=== PATIENT | male | born 1945 | race Caucasian/White ===

== ENCOUNTER 2016-08-25 22:14 | Emergency (ER) | payer MEDICARE ==
[~2016-08-25] VITALS: Ht 170.2 cm; Wt 80.0 kg
[~2016-08-25 22:14] MED LIST: AZAT50 PO; OMEP20CA5 PO; PROM25SU8 PO
[2016-08-25 22:18] VITALS: BP 116/56; PULSE 59; RESP 20; TEMP 96.7; O2SAT 98
[2016-08-25] MEDS ORDERED: SODIUM CHLOR 0.9% 1000 ML INJ 1,000 ML IV SCH (22:36)
--- NOTE | 2016-08-25 22:43 | PD ---
HPI Chief Complaint: Abdominal Pain Time Seen by Provider: 22:39 Travel History International Travel<30 days: No Contact w/Intl Traveler<30days: No Traveled to known affect area: No History of Present Illness HPI 71-year-old male with a history of Crohn's disease that presents to the ED for evaluation of severe sharp pain on the epigastric area. Per patient this is in ongoing for about 3 hours. He denies any other symptoms with it other than some chest pressure. He states having had surgeries for removal of the rectum secondary to Crohn's disease in 2000. He has had no recent surgeries since. He states that he doesn't feel nausea but the pain is 10 out of 10. He states that he had something similar a year ago and he was diagnosed with GERD and was given medications with good results of his symptoms. Patient had a full workup during that time that showed no sign of acute disease. Per patient again and he states the pain feels similar. He denies any headache. States that the pain on the chest is more on the epigastric area. He denies any history of heart disease on himself or his family. He does have a history of hypertension. He takes chronically medications for his Crohn's. He states that he has a colostomy back and he has been producing stool with no problems as far as he knows. He denies any urinary issues. She denies eating anything new that could've caused this. No recent travel. No fevers chills or sweats. No trauma. Pain does not radiate. Denies any shortness of breath. PFSH Past Medical History Diminished Hearing: No Gastrointestinal Disorders: Yes (CROHNS) GERD: Yes Tetanus Vaccination: Unknown Influenza Vaccination: Yes ?: Not Past Surgical History Abdominal Surgery: Yes (sigmoid resection, rectum removal) Social History Alcohol Use: Yes (2 x week) Tobacco Use: No Substance Use: No Allergies-Medications (Allergen,Severity, Reaction): Coded Allergies: Penicillin (Verified Allergy, Severe, 08/25/16) Reported Meds & Prescriptions Reported Meds & Active Scripts Active Reported [id number] M1 50 Mg Tab 150 Mg PO DAILY Review of Systems Except as stated in HPI: all other systems reviewed are Neg Physical Exam Narrative GENERAL: SKIN: Warm and dry. HEAD: Atraumatic. Normocephalic. EYES: Pupils equal and round. No scleral icterus. No injection or drainage. ENT: No nasal bleeding or discharge. Mucous membranes pink and moist. NECK: Trachea midline. No JVD. CARDIOVASCULAR: Regular rate and rhythm. RESPIRATORY: No accessory muscle use. Clear to auscultation. Breath sounds equal bilaterally. GASTROINTESTINAL: Abdomen soft, patient is very tender in the epigastric area especially with deep palpation., nondistended. Hepatic and splenic margins not palpable. MUSCULOSKELETAL: Extremities without clubbing, cyanosis, or edema. No obvious deformities. Full range of motion of the upper and lower extremities bilaterally. 2+ pulses bilaterally. NEUROLOGICAL: Awake and alert. No obvious cranial nerve deficits. Motor grossly within normal limits. Five out of 5 muscle strength in the arms and legs. Normal speech. PSYCHIATRIC: Appropriate mood and affect; insight and judgment normal. Data Data Last Documented VS Vital Signs Date Time Temp Pulse Resp B/P Pulse Ox O2 Delivery O2 Flow Rate FiO2 08/25/16 22:18 96.7 59 20 116/56 98 Room Air Orders Complete Blood Count With Diff (08/25/16 22:36) Lipase (08/25/16 22:36) Lactic Acid (08/25/16 22:36) Prothrombin Time / Inr (Pt) (08/25/16 22:36) Act Partial Throm Time (Ptt) (08/25/16 22:36) Urinalysis - C+S If Indicated (08/25/16 22:36) Ct Abd/Pel W Iv Contrast(Rout) (08/25/16 22:36) Iv Access Insert/Monitor (08/25/16 22:36) Ecg Monitoring (08/25/16 22:36) Oximetry (08/25/16 22:36) NPO (08/25/16 22:36) Ondansetron Inj (Zofran Inj) (08/25/16 22:45) Pantoprazole Inj (Protonix Inj) (08/25/16 22:45) Sodium Chlor 0.9% 1000 Ml Inj (Ns 1000 M (08/25/16 22:36) Famotidine Inj (Pepcid Inj) (08/25/16 22:45) Hydromorphone Pf Inj (Dilaudid Pf Inj) (08/25/16 22:45) Troponin I (08/25/16 22:36) Ckmb (Isoenzyme) Profile (08/25/16 22:36) [facility] Medical Decision Making Medical Screen Exam Complete: Yes Emergency Medical Condition: Yes Medical Record Reviewed: Yes Differential Diagnosis Crohn's flare versus epigastric pain versus pancreatitis versus perforated bowel versus obstruction versus GERD versus gastritis versus gastric ulcer versus chest pain versus ACS versus a typical chest pain Narrative Course 71-year-old male that presents to the ED for evaluation of epigastric pain. Patient was properly examined and was found to have signs and symptoms consistent with appears to be like abdominal pain but cannot rule out cardiac disease secondary to his age and symptoms. Motor, patient is times for labs and imaging. She was given IV pain medications. Patient agrees for us to proceed. Patient will be signed out to my attending pending lab and imaging results. Ted Singh Aug 25, 2016 22:43
[2016-08-25] MEDS ORDERED: ONDANSETRON HCL 4 MG/2 ML VIAL IVP ONE (22:45)
[2016-08-25] MEDS ORDERED: FAMOTIDINE 20 MG/2 ML VIAL IV PUSH ONE (22:45)
[2016-08-25] MEDS ORDERED: PANTOPRAZOLE SODIUM 40 MG VIAL IVP ONE (22:45)
[2016-08-25] MEDS ORDERED: HYDROmorphone HCL PF 1 MG/ML VIAL IVS ONE (22:45)
[2016-08-25] MEDS ORDERED: AZAT50 PO (23:09)
[2016-08-25 23:10] VITALS: O2SAT 98
[2016-08-25 23:12] VITALS: BP 155/74; PULSE 80; RESP 18; O2SAT 98
[2016-08-25 23:17] LABS: BASOPHIL % 0.3 % (0.0-2.0); EOSINOPHIL # 0.1 TH/MM3 (0-0.4); EOSINOPHIL % 0.6 % (0.0-4.0); HEMATOCRIT 40.7 % (39.0-51.0); HEMO FLAGS DIFF FINAL; LYMPH % 7.2 % (9.0-44.0); LYMPHOCYTE # 0.8 TH/MM3 (1.0-4.8); MEAN CELL VOLUME 91.2 FL (80.0-100.0); MEAN CORPUSCULAR HEMOGLOBIN 31.9 PG (27.0-34.0); MONO % 6.4 % (0.0-8.0); NEUT % 85.5 % (16.0-70.0); PLATELET COUNT 243 TH/MM3 (150-450); RED BLOOD COUNT 4.46 MIL/MM3 (4.50-5.90); RED CELL DISTRIBUTION WIDTH 14.9 % (11.6-17.2); WHITE BLOOD COUNT 10.5 TH/MM3 (4.0-11.0)
--- NOTE | 2016-08-25 23:26 | RADRPT ---
EXAM DATE/TIME: 08/25/2016 22:56 [facility] COMPARISON: CHEST SINGLE AP, June 03, 2015, 22:09. INDICATIONS : Chest pain. MEDICAL HISTORY : None. SURGICAL HISTORY : None. ENCOUNTER: Initial ACUITY: 1 day PAIN SCORE: 10/10 LOCATION: middle chest. FINDINGS: The cardiac silhouette is enlarged in transverse diameter. The lungs are free of acute parenchymal op acity. No effusions are identified. CONCLUSION: 1. Cardiomegaly. No acute pulmonary disease. Antolin Borges MD on August 25, 2016 at 23:25 Board Certified Radiologist. This report was verified electronically.
[2016-08-25 23:33] LABS: CREATINE KINASE 113 U/L (39-308)
[2016-08-25 23:46] LABS: CKMB 1.6 NG/ML (0.5-3.6)
[2016-08-26 00:10] LABS: ALT (GPT) 23 U/L (12-78); ANION GAP 10 MEQ/L (5-15); AST (GOT) 18 U/L (15-37); BICARBONATE 26.7 MEQ/L (21.0-32.0); BLOOD UREA NITROGEN 20 MG/DL (7-18); CHLORIDE 102 MEQ/L (98-107); GLOMERULAR FILTRATION RATE 55 ML/MIN (>89); POTASSIUM 3.5 MEQ/L (3.5-5.1); SODIUM (NA) 139 MEQ/L (136-145)
[2016-08-26 00:12] LABS: ALKALINE PHOSPHATASE 74 U/L (45-117); TOTAL BILIRUBIN ADULT 0.5 MG/DL (0.2-1.0)
[2016-08-26 00:28] VITALS: BP 134/62; PULSE 77; RESP 16; O2SAT 98
[2016-08-26] MEDS ORDERED: IOHEXOL 350 MG/ML 10 ML VIAL (for RAD DIAG) IV ONE (00:45)
[2016-08-26 00:53] LABS: BLOOD, URINE NEG (NEG); COMMENT (UR) CULT NOT INDICATED; CULTURE IF INDICATED CULT NOT INDICATED; GLUCOSE,URINE NEG (NEG); KETONE, URINE 40 mg/dL (NEG); MUCUS URINE FEW /lpf (OCC); NITRITE,URINE NEG (NEG); PH, URINE 6.5 (5.0-8.5); URINE COLOR YELLOW (YELLW/STRAW)
--- NOTE | 2016-08-26 01:00 | RADRPT ---
EXAM DATE/TIME: 08/26/2016 00:36 [facility] COMPARISON: No previous studies available for comparison. INDICATIONS : Upper abdominal pain. IV CONTRAST: 100 cc Omnipaque 350 (iohexol) IV ORAL CONTRAST: No oral contrast ingested. RADIATION DOSE: 9.84 CTDIvol (mGy) MEDICAL HISTORY : Crohn's disease. Gastroesophageal reflux disease. SURGICAL HISTORY : Sigmoid resection ENCOUNTER: Initial ACUITY: 1 day PAIN SCALE: 8/10 LOCATION: upper quadrant abdomen TECHNIQUE: Volumetric scanning of the abdomen and pelvis was performed. Using automated exposure control and ad justment of the mA and/or kV according to patient size, radiation dose was kept as low as reasonably achievable to obtain optimal diagnostic quality images. FINDINGS: There is linear atelectasis versus scar bilaterally. The liver and spleen are normal in size and no f ocal defects are identified. There are multiple stones within the gallbladder without wall thickening or pericholecystic fluid the largest measuring 10 mm containing air. The pancreas demonstrates no ev idence of mass and there is no dilatation of the pancreatic duct. The adrenal glands and kidneys appe ar normal bilaterally. No hydronephrosis or mass lesions are identified. Examination of the pelvis demonstrates no evidence of free fluid or pelvic mass. No abnormally enlarg ed inguinal or retroperitoneal lymph nodes are present. The bladder is unremarkable. The prostate gla nd is moderately enlarged impinging on the bladder base. An ostomy is present in the left lower quadr ant. CONCLUSION: 1. No evidence of acute abdominal or pelvic process. No masses are identified. 2. Cholelithiasis Antolin Borges MD on August 26, 2016 at 0:55 Board Certified Radiologist. This report was verified electronically.
--- NOTE | 2016-08-26 01:22 | PD ---
Data Data Last Documented VS Vital Signs Date Time Temp Pulse Resp B/P Pulse Ox O2 Delivery O2 Flow Rate FiO2 08/26/16 00:28 77 16 134/62 98 Room Air 08/25/16 22:18 96.7 Orders Complete Blood Count With Diff (08/25/16 22:36) Lipase (08/25/16 22:36) Lactic Acid (08/25/16 22:36) Prothrombin Time / Inr (Pt) (08/25/16 22:36) Act Partial Throm Time (Ptt) (08/25/16 22:36) Urinalysis - C+S If Indicated (08/25/16 22:36) Iv Access Insert/Monitor (08/25/16 22:36) Ecg Monitoring (08/25/16 22:36) Oximetry (08/25/16 22:36) NPO (08/25/16 22:36) Ondansetron Inj (Zofran Inj) (08/25/16 22:45) Pantoprazole Inj (Protonix Inj) (08/25/16 22:45) Sodium Chlor 0.9% 1000 Ml Inj (Ns 1000 M (08/25/16 22:36) Famotidine Inj (Pepcid Inj) (08/25/16 22:45) Hydromorphone Pf Inj (Dilaudid Pf Inj) (08/25/16 22:45) Troponin I (08/25/16 22:36) Ckmb (Isoenzyme) Profile (08/25/16 22:36) Chest, Single Ap (08/25/16 ) CKMB (08/25/16 23:00) CKMB% (08/25/16 23:00) Comprehensive Metabolic Panel (08/25/16 23:41) Ct Abd/Pel W Iv Contrast(Rout) (08/26/16 22:36) Iohexol 350 Inj (Omnipaque 350 Inj) (08/26/16 00:45) Labs Laboratory Tests Test 08/25/16 08/26/16 23:00 00:20 White Blood Count 10.5 TH/MM3 Red Blood Count 4.46 MIL/MM3 Hemoglobin 14.2 GM/DL Hematocrit 40.7 % Mean Corpuscular Volume 91.2 FL Mean Corpuscular Hemoglobin 31.9 PG Mean Corpuscular Hemoglobin 35.0 % Concent Red Cell Distribution Width 14.9 % Platelet Count 243 TH/MM3 Mean Platelet Volume 8.9 FL Neutrophils (%) (Auto) 85.5 % Lymphocytes (%) (Auto) 7.2 % Monocytes (%) (Auto) 6.4 % Eosinophils (%) (Auto) 0.6 % Basophils (%) (Auto) 0.3 % Neutrophils # (Auto) 9.0 TH/MM3 Lymphocytes # (Auto) 0.8 TH/MM3 Monocytes # (Auto) 0.7 TH/MM3 Eosinophils # (Auto) 0.1 TH/MM3 Basophils # (Auto) 0.0 TH/MM3 CBC Comment DIFF FINAL Differential Comment Prothrombin Time 11.0 SEC Prothromb Time International 1.0 RATIO Ratio Activated Partial 25.0 SEC Thromboplast Time Lactic Acid Level 2.9 mmol/L Total Creatine Kinase 113 U/L Creatine Kinase MB 1.6 NG/ML Troponin I LESS THAN 0.02 NG/ML Lipase 148 U/L Sodium Level 139 MEQ/L Potassium Level 3.5 MEQ/L Chloride Level 102 MEQ/L Carbon Dioxide Level 26.7 MEQ/L Anion Gap 10 MEQ/L Blood Urea Nitrogen 20 MG/DL Creatinine 1.29 MG/DL Estimat Glomerular Filtration 55 ML/MIN Rate Random Glucose 169 MG/DL Calcium Level 9.2 MG/DL Total Bilirubin 0.5 MG/DL Aspartate Amino Transf 18 U/L (AST/SGOT) Alanine Aminotransferase 23 U/L (ALT/SGPT) Alkaline Phosphatase 74 U/L Total Protein 7.2 GM/DL Albumin 3.8 GM/DL Urine Color YELLOW Urine Turbidity CLEAR Urine pH 6.5 Urine Specific [place] 1.015 Urine Protein NEG mg/dL Urine Glucose (UA) NEG mg/dL Urine Ketones 40 mg/dL Urine Occult Blood NEG Urine Nitrite NEG Urine Bilirubin NEG Urine Urobilinogen LESS THAN 2.0 MG/DL Urine Leukocyte Esterase NEG Urine RBC 1 /hpf Urine WBC 2 /hpf Urine Mucus FEW /lpf Microscopic Urinalysis Comment CULT NOT INDICATED MDM Supervised Visit with DUGLAS: Yes Narrative Course Patient seen and examined by me in addition to lucero Encarnacion, have reviewed the advance practice practitioner's documentation and am in agreement, met with the patient face to face, made the diagnosis, and the medical decision making was done by me. *My assessment and Findings: This 71-year-old male with a history of Crohn's disease and diverting colostomy presents today with lower quadrant abdominal pain now radiating up into his epigastric region. Patient's initial workup is negative, EKG shows normal sinus rhythm normal axis normal R-wave progression. No concerning ST changes is a normal EKG. Troponin negative, labs reassuring. CAT scan shows no intra- abdominal acute abnormality. Patient is completely relieved of his pain on my initial evaluation and would like to go home. Discussed the need follow the primary care physician symptomatically management including brat diet and return to ED criteria. Diagnosis Primary Impression: Abdominal pain Qualified Code: R10.9 - Abdominal pain, unspecified location Disposition: 01 DISCHARGE HOME Condition: Stable Altaf Encarnacion MD Aug 26, 2016 01:22
--- NOTE | 2016-08-26 18:36 | EKG ---
Date Performed: 08/25/2016 Time Performed: 22:30:42 PTAGE: 71 years EKG: Sinus rhythm NORMAL ECG PREVIOUS TRACING : 06/03/2015 21.50 Since previous tracing, no significant change noted DOCTOR: Shae Lobo Interpretating Date/Time 08/26/2016 18:35:39
== END 2016-08-26 01:37 | disposition home or self-care (01) ==
LOC: NEPE 22:14
DX: R10.13 Epigastric pain (principal); R07.89 Other chest pain; K50.90 Crohn's disease, unspecified, without complications; I10 Essential (primary) hypertension; K21.9 Gastro-esophageal reflux disease without esophagitis; Z93.3 Colostomy status
CPT/HCPCS: 71010; 74177; 80053; 81001; 82550; 82552; 83605; 83690; 84484; 85025; 85610; 85730; 93005; 96361; 96374; 96375; 99284; C9113; J1170; J2405; J7030; Q9967